=== PATIENT | male | born 1970 | race Caucasian/White ===

== ENCOUNTER 2016-12-29 20:28 | Emergency (ER) | payer BC, OTHER ==
--- NOTE | 2016-12-29 21:00 | EDM.PDOC ---
ED HPI NEURO - General Chief Complaint: Neuro Symptoms/Deficits Stated Complaint: PT DIZZY,HEADACHE Time Seen by Provider: 12/29/16 20:58 Source of Information: Reports: Patient, Family History Limitations: Reports: No limitations - History of Present Illness INITIAL COMMENTS - FREE TEXT/NARRATIVE: HISTORY AND PHYSICAL: [46-year-old male presenting with altered mental status.] History of Present Illness: [Yesterday patient was at [facility] was getting into the trunk of his car the trunk lid slammed to the top of his head and sustained a laceration was seen and trae were placed. Today at home he has had altered behaviors.] Review of Systems: As per history of present illness and below otherwise all systems reviewed and negative. Past medical history: As per history of present illness and as reviewed below otherwise noncontributory. Surgical history: As per history of present illness and as reviewed below otherwise noncontributory. Social history: No reported history of drug or alcohol abuse. Family history: As per history of present illness and as reviewed below otherwise noncontributory. Physical exam: Alert and oriented HEENT: Atraumatic, normocehpalic, pupils reactive, negative for conjunctival pallor or scleral icterus, mucous membranes moist, throat clear, neck supple, nontender, trachea midline. Lungs: Clear to auscultation, breath sounds equal bilaterally, chest non tender. Heart: S1S2, regular, negative for clicks, rubs, or JVD. Abdomen: Soft, nondistended, nontender. Negative for masses or hepatossplenmegaly. Negative for costovertebral tenderness. Pelvis: Stable nontender. Genitourinary: Deferred. Rectal: Deferred Extremities: Atraumatic, negative for cords or calf pain. Neurovascular unremarkable. Neuro: Awake, alert, oriented. Cranial nerves II through XII unremarkable. Cerebellum unremarkable. Motor and sensory unremarkable throughout. Exam nonfocal. Diagnostics: [Head CT] Therapeutics: [] Impression: [Concussion] Plan: [] Refer to Dr. Greer Until Tuesday01/11/2016 Definitive disposition and diagnosis as appropriate pending reevaluation and review of above. Timing/Duration: Reports: Hour(s): - Related Data Allergies/ADRs: Allergies Allergy/AdvReac Type Severity Reaction Status Date / Time No Known Allergies Allergy Verified 12/29/16 20:34 Home Meds: Home Meds Flecainide [Tambocor] 50 mg PO BID 12/29/16 [History] buPROPion [Wellbutrin XL] 150 mg PO DAILY 12/29/16 [History] Past Medical History Cardiovascular History: Reports: Arrhythmia Respiratory History: Reports: Sleep apnea Gastrointestinal History: Reports: None Genitourinary History: Reports: None Musculoskeletal History: Reports: Back pain, chronic Neurological History: Reports: None Psychiatric History: Reports: Depression Endocrine/Metabolic History: Reports: None - Infectious Disease History Infectious Disease History: Reports: Chicken pox - Past Surgical History HEENT Surgical History: Reports: Myringotomy w tube(s) Male Surgical History: Reports: None Other Musculoskeletal Surgeries/Procedures:: left knee surgery Social & Family History - Family History Family Medical History: Noncontributory - Tobacco Use Smoking Status *Q: Never Smoker - Recreational Drug Use Recreational Drug Use: No ED ROS GENERAL - Review of Systems Review Of Systems: ROS reveals no pertinent complaints other than HPI. ED EXAM, NEURO - Physical Exam Exam: See Below (see dictation) Course - Vital Signs Last Recorded V/S: Last Vital Signs Temp 36.4 C 12/29/16 20:35 Pulse 66 12/29/16 20:35 Resp 16 12/29/16 20:35 BP 128/80 12/29/16 20:35 Pulse Ox 94 L 12/29/16 20:35 - Orders/Labs/Meds Orders: Active Orders 24 hr Category Date Time Status Head wo Cont [CT] Stat Exams 12/29/16 20:46 Taken Departure - Departure Time of Disposition: 21:38 Disposition: Home, Self-Care 01 Condition: good Clinical Impression: Concussion Qualifiers: Encounter type: initial encounter Loss of consciousness presence/duration: without LOC Qualified Code(s): S06.0X0A - Concussion without loss of consciousness, initial encounter Instructions: Post-Concussion Syndrome, [id number] Referrals: PCP,None [Primary Care Provider] - Eunice Greer MD [Physician] - Forms: ED Department Discharge Additional Instructions: The following information is given to patients seen in the emergency department who are being discharged to home. This information is to outline your options for follow-up care. We provide all patients seen in our emergency department with a follow-up referral. The need for follow-up, as well as the timing and circumstances, are variable depending upon the specifics of your emergency department visit. If you don't have a primary care physician on staff, we will provide you with a referral. We always advise you to contact your personal physician following an emergency department visit to inform them of the circumstance of the visit and for follow-up with them and/or the need for any referrals to a consulting specialist. The emergency department will also refer you to a specialist when appropriate. This referral assures that you have the opportunity for followup care with a specialist. All of these measure are taken in an effort to provide you with optimal care, which includes your followup. Under all circumstances we always encourage you to contact your private physician who remains a resource for coordinating your care. When calling for followup care, please make the office aware that this follow-up is from your recent emergency room visit. If for any reason you are refused follow-up, please contact the [facility] emergency department at and asked to speak to the emergency department charge nurse. Tylenol for pain Referral has been made to Dr. Eunice Greer, neurologist [facility] - Neurology Professional Building [address] [place] [address], [address] [place] [address] Please call for an appointment Written note to be off work until
[2016-12-30 00:07] VITALS: BP 131/66
--- NOTE | 2016-12-30 18:34 | CT ---
EXAM DATE: 12/29/16 PATIENT'S AGE: 46 Patient: HERSON TERRY Facility: [place], [place] Site . Site : 1970 Study: CT Head [id number]/15/2017 9:12:35 PM Ordering Physician: Doctor Do Final Report: INDICATION: Headache following head trauma 1 day prior TECHNIQUE: CT head without contrast. COMPARISON: None FINDINGS: CSF spaces: Within normal limits for age. Brain parenchyma: The pearson-white differentiation is normal. No sign of mass, hemorrhage, or midline shift. Skull base and calvarium: The visualized paranasal sinuses and mastoid air cells demonstrate no acute or significant findings. The visualized orbits are grossly unremarkable. No skull fractures. IMPRESSION: Unremarkable noncontrast head CT. No evidence of acute intracranial trauma. Dictated by Santhosh Bennett MD @ 12/29/2016 9:20:15 PM Dictated by: Santhosh Bennett MD @ 12/29/2016 21:20:19 (Electronic Signature) Report Signed by Proxy and Original Signed Document filed in the Medical Record. [facility]
== END 2016-12-29 21:56 | disposition home or self-care (01) ==
LOC: MW.ED 20:28
DX: S06.0X0A Concussion without loss of consciousness, initial encounter (principal); Z79.899 Other long term (current) drug therapy; Z98.890 Other specified postprocedural states; X58.XXXA Exposure to other specified factors, initial encounter
CPT/HCPCS: 70450; 70450-26; 99283; 99284-25

== ENCOUNTER 2017-12-10 21:15 | Emergency (ER) | payer BC ==
--- NOTE | 2017-12-10 21:19 | EDM.PDOC ---
<Usha Jacobs - Last Filed: 12/10/17 21:31> ED HPI GENERAL MEDICAL PROBLEM - General Stated Complaint: COUGH, CHILLS, FEVER Time Seen by Provider: 12/10/17 21:19 Source of Information: Reports: Family History Limitations: Reports: No Limitations - History of Present Illness INITIAL COMMENTS - FREE TEXT/NARRATIVE: Patient has a son who had influenza last week. Patient did not have prophylactic Tamiflu He is experiencing coughing and fever. With this exposure will go ahead and treat him for influenza Prescription will be electronically sent to [place] [facility] follow-up with his provider next week Onset: Gradual Duration: Day(s): (2) Location: Reports: Chest Quality: Reports: Ache Severity: Mild Improves with: Reports: None Worsens with: Reports: None throat Pain Score (Numeric/FACES): 5 - Related Data Allergies Allergy/AdvReac Type Severity Reaction Status Date / Time No Known Allergies Allergy Verified 12/10/17 21:26 Home Meds: Home Meds Flecainide [Tambocor] 50 mg PO BID 12/29/16 [History] buPROPion [Wellbutrin XL] 150 mg PO DAILY 12/29/16 [History] Oseltamivir [Tamiflu] 75 mg PO BID #10 cap 12/10/17 [Rx] ED ROS GENERAL - Review of Systems Review Of Systems: ROS reveals no pertinent complaints other than HPI. ED EXAM, GENERAL - Physical Exam Exam: See Below (See dictation) Course - Vital Signs Last Recorded V/S: Last Vital Signs Temp 99.7 F 12/10/17 21:40 Pulse 112 H 12/10/17 21:40 Resp 18 12/10/17 21:40 BP 115/65 12/10/17 21:40 Pulse Ox 94 L 12/10/17 21:40 Departure - Departure Time of Disposition: 21:33 Disposition: Home, Self-Care 01 Condition: Good Clinical Impression: Influenza - Discharge Information Prescriptions: Oseltamivir [Tamiflu] 75 mg PO BID #10 cap Instructions: Influenza, Adult, [id number] Referrals: Santhosh Anders MD [Primary Care Provider] - Forms: ED Department Discharge Additional Instructions: The following information is given to patients seen in the emergency department who are being discharged to home. This information is to outline your options for follow-up care. We provide all patients seen in our emergency department with a follow-up referral. The need for follow-up, as well as the timing and circumstances, are variable depending upon the specifics of your emergency department visit. If you don't have a primary care physician on staff, we will provide you with a referral. We always advise you to contact your personal physician following an emergency department visit to inform them of the circumstance of the visit and for follow-up with them and/or the need for any referrals to a consulting specialist. The emergency department will also refer you to a specialist when appropriate. This referral assures that you have the opportunity for followup care with a specialist. All of these measure are taken in an effort to provide you with optimal care, which includes your followup. Under all circumstances we always encourage you to contact your private physician who remains a resource for coordinating your care. When calling for followup care, please make the office aware that this follow-up is from your recent emergency room visit. If for any reason you are refused follow-up, please contact the [facility] emergency department at and asked to speak to the emergency department charge nurse. Follow-up with your provider next week He retreated for influenza with Tamiflu 1 capsule twice daily 5 days Stay home until your symptoms resolve <Jameel Harry - Last Filed: 12/14/17 10:16> ED HPI GENERAL MEDICAL PROBLEM - General Source of Information: Reports: Patient - History of Present Illness INITIAL COMMENTS - FREE TEXT/NARRATIVE: HISTORY AND PHYSICAL: Patient was seen and examined by Usha jacobs [] Definitive disposition and diagnosis as appropriate pending reevaluation and review of above. Past Medical History Cardiovascular History: Reports: Arrhythmia Respiratory History: Reports: Sleep Apnea Gastrointestinal History: Reports: None Genitourinary History: Reports: None Musculoskeletal History: Reports: Back Pain, Chronic Neurological History: Reports: None Psychiatric History: Reports: Depression Endocrine/Metabolic History: Reports: None - Infectious Disease History Infectious Disease History: Reports: Chicken Pox - Past Surgical History HEENT Surgical History: Reports: Myringotomy w Tube(s) Social & Family History - Family History Family Medical History: Noncontributory - Tobacco Use Smoking Status *Q: Never Smoker - Recreational Drug Use Recreational Drug Use: No Course - Vital Signs Last Recorded V/S: Last Vital Signs Temp 99.7 F 12/10/17 21:40 Pulse 112 H 12/10/17 21:40 Resp 18 12/10/17 21:40 BP 115/65 12/10/17 21:40 Pulse Ox 94 L 12/10/17 21:40
[2017-12-10 21:41] VITALS: BP 115/65
== END 2017-12-10 21:42 | disposition home or self-care (01) ==
LOC: MW.ED 21:15
DX: J11.1 Influenza due to unidentified influenza virus with other respiratory manifestations (principal); F32.9 Major depressive disorder, single episode, unspecified; Z79.899 Other long term (current) drug therapy
CPT/HCPCS: 99282

== ENCOUNTER 2017-12-11 11:55 | Emergency (ER) | payer BC | END 2017-12-11 12:30 | disposition left against medical advice (07) | LOC: MW.ED 11:55 | DX: Z53.21 Procedure and treatment not carried out due to patient leaving prior to being seen by health care provider (principal) ==

== ENCOUNTER 2021-06-04 09:14 | Day surgery (SDC) | payer BC ==
[~2021-06-04 09:14] MED LIST: Lactated Ringers 1,000 ML IV SCH; Sodium Chloride 0.9% 10 ML SDV IV PRN; Sodium Chloride 0.9% 10 ML Syringe FLUSH PRN; Sodium Chloride 0.9% 2.5 ML Syringe FLUSH PRN
--- NOTE | 2021-06-04 09:48 | PCM.PREANE ---
Preanesthetic Assessment - Procedure Proposed Procedure: Colonoscopy - Anesthesia/Transfusion/Family Hx Anesthesia History: Prior Anesthesia Without Reaction Family History of Anesthesia Reaction: No Transfusion History: No Prior Transfusion(s) Intubation History: Unknown - Review of Systems General: No Symptoms Pulmonary: No Symptoms Cardiovascular: No Symptoms (Arryrythmia controlled on Flecainide) Gastrointestinal: No Symptoms Neurological: No Symptoms Other: Reports: None - Physical Assessment NPO Status Date: 06/02/21 NPO Status Time: 19:30 Vital Signs: Last Vital Signs Temp 96.4 F L 06/04/21 09:24 Pulse 67 06/04/21 09:24 Resp 15 06/04/21 09:24 BP 127/79 06/04/21 09:24 Pulse Ox 96 06/04/21 09:24 Height: 5 ft 10 in Weight: 111.584 kg ASA Class: 3 Mental Status: Alert & Oriented x3 Airway Class: Mallampati = 3 Dentition: Reports: Normal Dentition Thyro-Mental Finger Breadths: 3 Mouth Opening Finger Breadths: 3 ROM/Head Extension: Full Lungs: Clear to Auscultation, Normal Respiratory Effort Cardiovascular: Regular Rate, Regular Rhythm - Allergies Allergies/Adverse Reactions: Allergies Allergy/AdvReac Type Severity Reaction Status Date / Time No Known Allergies Allergy Verified 05/29/21 09:00 - Acknowledgements Anesthesia Type Planned: General Anesthesia Pt an Appropriate Candidate for the Planned Anesthesia: Yes Alternatives and Risks of Anesthesia Discussed w Pt/Guardian: Yes Pt/Guardian Understands and Agrees with Anesthesia Plan: Yes PreAnesthesia Questionnaire HEENT History: Reports: None Cardiovascular History: Reports: Arrhythmia Respiratory History: Reports: Sleep Apnea Other Respiratory History: uses CPAP Gastrointestinal History: Reports: Other (See Below) Genitourinary History: Reports: None Musculoskeletal History: Reports: Back Pain, Chronic Neurological History: Reports: None Psychiatric History: Reports: Depression Endocrine/Metabolic History: Reports: Obesity/BMI 30+ Hematologic History: Reports: None Immunologic History: Reports: None Oncologic (Cancer) History: Reports: None Dermatologic History: Reports: Other (See Below) Other Dermatologic History: states tested positive for MRSA in the past - Infectious Disease History Infectious Disease History: Reports: Chicken Pox Other Infectious Disease History: states had COVID in May 2020, also states he tested positive for MRSA in the past - Past Surgical History Head Surgeries/Procedures: Reports: None HEENT Surgical History: Reports: Myringotomy w Tube(s), Tonsillectomy Cardiovascular Surgical History: Reports: None Respiratory Surgical History: Reports: None GI Surgical History: Reports: Cholecystectomy Male Surgical History: Reports: None Endocrine Surgical History: Reports: None Neurological Surgical History: Reports: None Musculoskeletal Surgical History: Reports: Arthroscopic Knee Other Musculoskeletal Surgeries/Procedures:: left knee surgery Oncologic Surgical History: Reports: None Dermatological Surgical History: Reports: None - SUBSTANCE USE Tobacco Use Within Last Twelve Months: No - HOME MEDS Home Medications: Home Meds Flecainide [Tambocor] 50 mg PO BID 12/29/16 [History] buPROPion [Wellbutrin XL] 150 mg PO DAILY 12/29/16 [History] Ibuprofen 1 - 2 tab PO ASDIRECTED PRN 07/27/18 [History] dilTIAZem HCL [Diltiazem 24Hr ER] 120 mg PO DAILY 07/27/18 [History] Diclofenac Sodium [Diclofenac Sodium ER] 100 mg PO DAILY 07/28/18 [History] Pantoprazole Sodium [Protonix] 40 mg PO DAILY 05/29/21 [History] - CURRENT (IN HOUSE) MEDS Current Meds: Current Medications Lactated Ringer's (Ringers, Lactated) 1,000 mls @ 125 mls/hr IV ASDIRECTED [facility] Last Admin: 06/04/21 09:41 Dose: 125 mls/hr Documented by: Sodium Chloride (Sodium Chloride 0.9% 10 Ml Syringe) 10 ml FLUSH ASDIRECTED PRN PRN Reason: Keep Vein Open Sodium Chloride (Sodium Chloride 0.9% 2.5 Ml Syringe) 2.5 ml FLUSH ASDIRECTED PRN PRN Reason: Keep Vein Open Sodium Chloride (Sodium Chloride 0.9% 10 Ml Syringe) 10 ml FLUSH ASDIRECTED PRN PRN Reason: Keep Vein Open Sodium Chloride (Sodium Chloride 0.9% 2.5 Ml Syringe) 2.5 ml FLUSH ASDIRECTED PRN PRN Reason: Keep Vein Open Sodium Chloride (Sodium Chloride 0.9% 10 Ml Sdv) 10 ml IV ASDIRECTED PRN PRN Reason: IV Use
[2021-06-04] MEDS ORDERED: Propofol 200 MG/20 ML SDV ONE ×3 (10:54→12:22)
[2021-06-04] MEDS ORDERED: fentaNYL 100 MCG/2 ML SDV ONE (10:55)
--- NOTE | 2021-06-04 12:56 | PCM.OPNOTE ---
- General Post-Op/Procedure Note Date of Surgery/Procedure: 06/04/21 Operative Procedure(s): Diagnostic colonoscopy Findings: ascending and transverse colon polyp, random biopsies throughout colon Pre Op Diagnosis: Change in bowel habits Post-Op Diagnosis: ascending and transverse colon polyp Anesthesia Technique: KATIE Primary Surgeon: Aimee Coronado Condition: Good
[2021-06-04 12:57] VITALS: PULSE 83
--- NOTE | 2021-06-04 13:02 | PCM.POSTAN ---
POST ANESTHESIA ASSESSMENT - MENTAL STATUS Mental Status: Alert, Oriented - VITAL SIGNS Vital Signs: Last Vital Signs Temp 96.4 F L 06/04/21 09:24 Pulse 83 06/04/21 12:55 Resp 19 06/04/21 12:55 BP 106/70 06/04/21 12:55 Pulse Ox 93 L 06/04/21 12:55 - RESPIRATORY Respiratory Status: Respiratory Rate WNL, Airway Patent, O2 Saturation Stable - CARDIOVASCULAR CV Status: Pulse Rate WNL, Blood Pressure Stable - GASTROINTESTINAL GI Status: No Symptoms - PAIN Pain Score: 0 - POST OP HYDRATION Hydration Status: Adequate & Stable
[2021-06-04 13:04] VITALS: BP 118/79
--- NOTE | 2021-06-04 13:04 | PCM48HPAN ---
Post Anesthesia Note - EVALUATION WITHIN 48HRS OF ANESTHETIC Vital Signs in Normal Range: Yes Patient Participated in Evaluation: Yes Respiratory Function Stable: Yes Airway Patent: Yes Cardiovascular Function Stable: Yes Hydration Status Stable: Yes Pain Control Satisfactory: Yes Nausea and Vomiting Control Satisfactory: Yes Mental Status Recovered: Yes Vital Signs: Last Vital Signs Temp 96.4 F L 06/04/21 09:24 Pulse 83 06/04/21 12:55 Resp 19 06/04/21 12:55 BP 106/70 06/04/21 12:55 Pulse Ox 93 L 06/04/21 12:55 - COMMENTS/OBSERVATIONS Free Text/Narrative:: Pt doing well post-op. VSS. No apparent anesthetic complications. Dr. Joey Cortés
--- NOTE | 2021-06-05 18:00 | OR ---
SURGEON: AIMEE CORONADO MD DATE OF PROCEDURE: 06/04/2021 PREOPERATIVE DIAGNOSIS: Change in bowel habits. POSTOPERATIVE DIAGNOSES: 1. Ascending colon polyp. 2. Transverse colon polyp. PROCEDURE PERFORMED: Diagnostic colonoscopy. PRIMARY SURGEON: Aimee Coronado MD ANESTHESIA: MAC. INSTRUMENT USED: Olympus colonoscope. EXTENT OF EXAM: To the cecum. PREPARATION: Good. LIMITATIONS: None. INDICATIONS FOR EXAMINATION: The patient is a 50-year-old male who presented to clinic with complaints of a change in his bowel habits. He has been having chronic diarrhea. The decision was made to proceed with a diagnostic colonoscopy with biopsies. I explained the procedure, expected perioperative course, and the risks. He verbalized understanding and wishes to proceed. PROCEDURE IN DETAIL: The patient was brought in to the endoscopy suite and placed in a left lateral decubitus position. A time-out was completed verifying the patient's name, age, date of , allergies, and procedure to be performed. Monitored anesthesia care was induced and continuous oxygen was provided via nasal cannula throughout the procedure. After adequate sedation was achieved, a digital rectal exam was performed. This exam was within normal limits. A well-lubricated colonoscope was inserted in the rectum and advanced under direct visualization to the level of the cecum. The cecum was identified by both visual and anatomic landmarks. A photograph was taken of the cecal cap; however, I was unable to retroflex the scope within the cecum due to looping of the scope more proximally. The scope was then fully withdrawn while examining the color, texture, anatomy, and integrity of the mucosa from the cecum to the anal canal. The patient's mucosa showed no evidence of inflammation or ulceration. A random biopsies were taken of the patient's cecum, ascending colon, transverse colon, descending colon, sigmoid colon, and rectum. The patient was noted to have an ascending and transverse colon polyp. These were removed in piecemeal fashion using a cold biopsy forceps. The scope was then brought into the rectum and retroflexed to allow visualization of the anal canal opening. This appeared normal and a photograph was taken. The scope was then straightened out and fully withdrawn. The cecum to anus time was 19 minutes. The patient tolerated the procedure well and was transferred to the PACU in stable condition. ENDOSCOPIC DIAGNOSES: 1. Ascending colon polyp. 2. Transverse colon polyp. RECOMMENDATION: Follow up in clinic in two weeks. NAMRATA / VIVIENNE /[id number]
== END 2021-06-04 13:15 | disposition home or self-care (01) ==
LOC: MW.SDS 09:14
PROVIDERS: ATTEND Surgery
DX: D12.3 Benign neoplasm of transverse colon (principal); D12.2 Benign neoplasm of ascending colon; K52.9 Noninfective gastroenteritis and colitis, unspecified; E66.9 Obesity, unspecified; Z79.899 Other long term (current) drug therapy; Z98.890 Other specified postprocedural states; Z87.891 Personal history of nicotine dependence; Z68.35 Body mass index [BMI] 35.0-35.9, adult
CPT/HCPCS: 45380; 88305; J2704; J3010; J7120

== ENCOUNTER 2021-08-22 22:59 | Emergency (ER) | payer BC ==
--- NOTE | 2021-08-22 23:01 | EDM.PDOC ---
ED HPI GENERAL MEDICAL PROBLEM - General Stated Complaint: HEART PROBLEM Time Seen by Provider: 08/22/21 23:00 Source of Information: Reports: Patient History Limitations: Reports: No Limitations - History of Present Illness INITIAL COMMENTS - FREE TEXT/NARRATIVE: 50-year-old male past medical history GERD, hypertension presents for rapid heart rate. Patient has a known history of atrial fibrillation and is on flecainide and diltiazem. He notes he is not always good about taking his flecainide. He noted this evening that his heart was pounding. He denies any pain associated with that. He just makes him feel weak and tired. He denies any shortness of breath. Denies any lower extremity swelling or edema. Left Chest Pain Score (Numeric/FACES): 1 - Related Data Allergies Allergy/AdvReac Type Severity Reaction Status Date / Time No Known Allergies Allergy Verified 08/22/21 23:02 Home Meds: Home Meds Flecainide [Tambocor] 50 mg PO BID 12/29/16 [History] buPROPion [Wellbutrin XL] 150 mg PO DAILY 12/29/16 [History] Ibuprofen 1 - 2 tab PO ASDIRECTED PRN 07/27/18 [History] dilTIAZem HCL [Diltiazem 24Hr ER] 120 mg PO DAILY 07/27/18 [History] Pantoprazole Sodium [Protonix] 40 mg PO DAILY 05/29/21 [History] Past Medical History HEENT History: Reports: None Cardiovascular History: Reports: Arrhythmia Respiratory History: Reports: Sleep Apnea Other Respiratory History: uses CPAP Gastrointestinal History: Reports: Other (See Below) Genitourinary History: Reports: None Musculoskeletal History: Reports: Back Pain, Chronic Neurological History: Reports: None Psychiatric History: Reports: Depression Endocrine/Metabolic History: Reports: Obesity/BMI 30+ Hematologic History: Reports: None Immunologic History: Reports: None Oncologic (Cancer) History: Reports: None Dermatologic History: Reports: Other (See Below) Other Dermatologic History: states tested positive for MRSA in the past - Infectious Disease History Infectious Disease History: Reports: Chicken Pox Other Infectious Disease History: states had COVID in May 2020, also states he tested positive for MRSA in the past - Past Surgical History Head Surgeries/Procedures: Reports: None HEENT Surgical History: Reports: Myringotomy w Tube(s), Tonsillectomy Cardiovascular Surgical History: Reports: None Respiratory Surgical History: Reports: None GI Surgical History: Reports: Cholecystectomy Male Surgical History: Reports: None Endocrine Surgical History: Reports: None Neurological Surgical History: Reports: None Musculoskeletal Surgical History: Reports: Arthroscopic Knee Other Musculoskeletal Surgeries/Procedures:: left knee surgery Oncologic Surgical History: Reports: None Dermatological Surgical History: Reports: None Social & Family History - Family History Family Medical History: No Pertinent Family History - Caffeine Use Caffeine Use: Reports: None ED ROS GENERAL - Review of Systems Review Of Systems: Comprehensive ROS is negative, except as noted in HPI. ED EXAM, GENERAL - Physical Exam Exam: See Below Exam Limited By: No Limitations General Appearance: Alert, WD/WN, No Apparent Distress Ears: Hearing Grossly Normal Throat/Mouth: Normal Voice, No Airway Compromise Head: Atraumatic, Normocephalic Respiratory/Chest: No Respiratory Distress, Lungs Clear, Normal Breath Sounds, No Accessory Muscle Use Cardiovascular: Normal Peripheral Pulses, No Edema, Tachycardia, Irregularly Irregular GI/Abdominal: Soft, Non-Tender Extremities: Normal Inspection Neurological: Alert, Normal Cognition, Normal Gait Psychiatric: Normal Affect, Normal Mood Skin Exam: Warm, Dry, Intact, Normal Color #1 Interpretation EKG Date: 08/22/21 Time: 23:07 Rhythm: A-Fib Rate (Beats/Min): 134 [place]: Normal QRS: Normal ST-T: Normal QT: Normal EKG Interpretation Comments: Afib RVR, no ischemic changes Course - Vital Signs Last Recorded V/S: Last Vital Signs Temp 97.1 F 08/22/21 23:02 Pulse 96 08/22/21 23:29 Resp 18 08/22/21 23:29 BP 123/78 08/22/21 23:29 Pulse Ox 95 08/22/21 23:29 - Orders/Labs/Meds Orders: Active Orders 24 hr Category Date Time Status EKG Documentation Completion [RC] STAT Care 08/22/21 23:09 Active COMPREHENSIVE METABOLIC PN,CMP [CHEM] Stat Lab 08/22/21 23:20 Results MAGNESIUM [CHEM] Stat Lab 08/22/21 23:20 Results T4 FREE [CHEM] Stat Lab 08/22/21 23:20 Results TROPONIN I [CHEM] Stat Lab 08/22/21 23:20 Results TSH REFLEX TO FREE T4 [CHEM] Stat Lab 08/22/21 23:20 Results Saline Lock Insert [OM.PC] Stat Oth 08/22/21 23:10 Ordered Labs: Laboratory Tests 08/22/21 08/22/21 08/22/21 Range/Units 23:20 23:40 23:40 WBC 6.44 (4.0-11.0) K/uL RBC 4.97 (4.50-5.90) M/uL Hgb 15.5 (13.0-17.0) g/dL Hct 44.8 (38.0-50.0) % MCV 90.1 (80.0-98.0) fL MCH 31.2 (27.0-32.0) pg MCHC 34.6 (31.0-37.0) g/dL RDW Std Deviation 44.5 (28.0-62.0) fl RDW Coeff of Wu 14 (11.0-15.0) % Plt Count 206 (150-400) K/uL MPV 9.80 (7.40-12.00) fL Neut % (Auto) 52.9 (48.0-80.0) % Lymph % (Auto) 34.2 (16.0-40.0) % [place] % (Auto) 10.9 (0.0-15.0) % Eos % (Auto) 1.7 (0.0-7.0) % Baso % (Auto) 0.3 (0.0-1.5) % Neut # (Auto) 3.4 (1.4-5.7) K/uL Lymph # (Auto) 2.2 (0.6-2.4) K/uL [place] # (Auto) 0.7 (0.0-0.8) K/uL Eos # (Auto) 0.1 (0.0-0.7) K/uL Baso # (Auto) 0.0 (0.0-0.1) K/uL Nucleated RBC % 0.0 /100WBC Nucleated RBCs # 0 K/uL Sodium 145 (136-148) mmol/L Potassium 3.8 (3.5-5.1) mmol/L Chloride 106 (98-107) mmol/L Carbon Dioxide 29.3 (21.0-32.0) mmol/L BUN 19 H (7.0-18.0) mg/dL Creatinine 1.2 (0.8-1.3) mg/dL Est Cr Clr Drug Dosing 76.89 mL/min Estimated GFR (MDRD) > 60.0 ml/min Glucose 107 H (74-106) mg/dL Calcium 8.7 (8.5-10.1) mg/dL Magnesium 2.1 (1.8-2.4) mg/dL Total Bilirubin 0.4 (0.2-1.0) mg/dL AST 18 (15-37) IU/L ALT 43 (14-63) IU/L Alkaline Phosphatase 68 (46-116) U/L Troponin I < 0.050 (0.000-0.056) ng/mL B-Natriuretic Peptide 26 (<100) PG/ML Total Protein 7.4 (6.4-8.2) g/dL Albumin 3.9 (3.4-5.0) g/dL Globulin 3.5 (2.6-4.0) g/dL Albumin/Globulin Ratio 1.1 (0.9-1.6) TSH, Ultra Sensitive 6.02 H (0.36-3.74) uIU/mL Meds: Medications Discontinued Medications Generic Name Dose Route Start Last Admin Trade Name Freq PRN Reason Stop Dose Admin Diltiazem HCl 25 mg 08/22/21 23:10 08/22/21 23:20 Diltiazem 25 Mg/5 Ml Sdv IVPUSH 08/22/21 23:11 25 mg ONETIME ONE Administration Diltiazem HCl 60 mg 08/22/21 23:27 08/22/21 23:42 Diltiazem Ir 60 Mg Tab PO 08/22/21 23:28 60 mg ONETIME ONE Administration Sodium Chloride 1,000 mls @ 999 mls/hr 08/22/21 23:09 08/22/21 23:19 Normal Saline IV 08/23/21 00:09 999 mls/hr .Bolus ONE Administration - Re-Assessments/Exams Free Text/Narrative Re-Assessment/Exam: 08/22/21 23:12 We will get basic labs. Will give IV fluid bolus. Will give Cardizem for A. fib RVR. 08/22/21 23:28 Her rate improved from 140s to high 90s. Will give Cardizem 60 mg p.o. 08/23/21 00:33 Heart rate in the low 90s. Counseled patient on importance of taking medications. Will discharge with PMD follow-up. Labs unremarkable. Departure - Departure Time of Disposition: 00:33 Disposition: Home, Self-Care 01 Condition: Good Clinical Impression: Atrial fibrillation with RVR - Discharge Information Instructions: Atrial Fibrillation Referrals: PCP,None [Ordering Only Provider] - Additional Instructions: The following information is given to patients seen in the emergency department who are being discharged to home. This information is to outline your options for follow-up care. We provide all patients seen in our emergency department with a follow-up referral. The need for follow-up, as well as the timing and circumstances, are variable depending upon the specifics of your emergency department visit. If you don't have a primary care physician on staff, we will provide you with a referral. We always advise you to contact your personal physician following an e mergency department visit to inform them of the circumstance of the visit and for follow-up with them and/or the need for any referrals to a consulting specialist. The emergency department will also refer you to a specialist when appropriate. This referral assures that you have the opportunity for follow-up care with a specialist. All of these measure are taken in an effort to provide you with op timal care, which includes your follow-up. Under all circumstances we always encourage you to contact your private physician who remains a resource for coordinating your care. When calling for follow-up care, please make the office aware that this follow-up is from your recent emergency room visit. If for any reason you are refused follow-up, please contact the [facility] Emergency Department at and asked to speak to the emergency department charge nurse. Please follow up with your primary care physician. If you do not have a primary care physician, see below: [facility] [address] [place] [id number] [facility] [address] [place], [place] [id number] [facility] [address] [place] [address] Sepsis Event Note (ED) - Focused Exam Vital Signs: Vital Signs Temp Pulse Resp BP Pulse Ox 08/22/21 23:29 96 18 123/78 95 08/22/21 23:24 150 H 28 H 147/84 H 08/22/21 23:02 97.1 F 127 H 20 147/84 H 95 - My Orders Last 24 Hours: My Active Orders 08/22/21 23:09 EKG Documentation Completion [RC] STAT 08/22/21 23:10 Saline Lock Insert [OM.PC] Stat 08/22/21 23:20 COMPREHENSIVE METABOLIC PN,CMP [CHEM] Stat MAGNESIUM [CHEM] Stat T4 FREE [CHEM] Stat TROPONIN I [CHEM] Stat TSH REFLEX TO FREE T4 [CHEM] Stat - Assessment/Plan Last 24 Hours: My Active Orders 08/22/21 23:09 EKG Documentation Completion [RC] STAT 08/22/21 23:10 Saline Lock Insert [OM.PC] Stat 08/22/21 23:20 COMPREHENSIVE METABOLIC PN,CMP [CHEM] Stat MAGNESIUM [CHEM] Stat T4 FREE [CHEM] Stat TROPONIN I [CHEM] Stat TSH REFLEX TO FREE T4 [CHEM] Stat
[2021-08-22] MEDS ORDERED: Sodium Chloride 0.9% 1,000 ML IV ONE (23:09)
[2021-08-22] MEDS ORDERED: Diltiazem 25 MG/5 ML SDV IVPUSH ONE (23:10)
[2021-08-22] MEDS ORDERED: Diltiazem IR 60 MG Tab PO ONE (23:27)
[2021-08-23 00:13] LABS: BLOOD UREA NITROGEN,BUN 19 mg/dL (7.0-18.0); CARBON DIOXIDE,CO2 29.3 mmol/L (21.0-32.0); CHLORIDE,CL 106 mmol/L (98-107); GLUCOSE RANDOM 107 mg/dL (74-106); POTASSIUM,K 3.8 mmol/L (3.5-5.1); SODIUM,NA 145 mmol/L (136-148)
[2021-08-23 00:47] VITALS: BP 126/67; PULSE 92
== END 2021-08-23 00:40 | disposition home or self-care (01) ==
LOC: MW.ED 22:59
DX: I48.91 Unspecified atrial fibrillation (principal); I10 Essential (primary) hypertension; K21.9 Gastro-esophageal reflux disease without esophagitis; E66.9 Obesity, unspecified; Z68.35 Body mass index [BMI] 35.0-35.9, adult; Z79.899 Other long term (current) drug therapy
CPT/HCPCS: 36415; 80053; 83735; 83880; 84439; 84443; 84484; 85025; 93005; 96374; 99285; A9270; J3490; J7030

== ENCOUNTER 2023-07-13 18:58 | Emergency (ER) | payer BC ==
[2023-07-13 19:14] LABS: BASOPHILS PERCENT AUTO 0.3 % (0.0-1.5); EOSINOPHILS ABSOLUTE AUTO 0.2 K/uL (0.0-0.7); EOSINOPHILS PERCENT AUTO 2.6 % (0.0-7.0); HEMOGLOBIN 15.3 g/dL (13.0-17.0); LYMPHOCYTES ABSOLUTE AUTO 2.5 K/uL (0.6-2.4); LYMPHOCYTES PERCENT AUTO 38.6 % (16.0-40.0); MEAN CORPUSCULAR HEMOGLOBIN 31.6 pg (27.0-32.0); MEAN CORPUSCULAR HGB CONC 34.8 g/dL (31.0-37.0); MEAN CORPUSCULAR VOLUME 90.9 fL (80.0-98.0); MONOCYTES ABSOLUTE AUTO 0.8 K/uL (0.0-0.8); MONOCYTES PERCENT AUTO 12.7 % (0.0-15.0); NEUTROPHILS PERCENT AUTO 45.8 % (48.0-80.0); NRBC ABSOLUTE 0 K/uL; PLATELET COUNT,PLT 257 K/uL (150-400); RED BLOOD CELL COUNT 4.84 M/uL (4.50-5.90); WHITE BLOOD CELL COUNT,WBC 6.55 K/uL (4.0-11.0)
[2023-07-13 19:39] LABS: A/G RATIO 1.3 (0.9-1.6); ALBUMIN 4.2 g/dL (3.4-5.0); BILIRUBIN TOTAL 0.4 mg/dL (0.2-1.0); CALCIUM 8.2 mg/dL (8.5-10.1); CARBON DIOXIDE,CO2 27.1 mmol/L (21.0-32.0); CREATININE 1.2 mg/dL (0.8-1.3); EST CRCL DRUG DOSING (CG) 75.2 mL/min; POTASSIUM,K 3.6 mmol/L (3.5-5.1); PROTEIN TOTAL,TP 7.4 g/dL (6.4-8.2)
[2023-07-13 19:57] LABS: CORONAVIRUS COVID-19 NAA NEGATIVE (NEGATIVE); INFLUENZA A NAA NEGATIVE (NEGATIVE); INFLUENZA B NAA NEGATIVE (NEGATIVE)
[2023-07-13 22:36] VITALS: BP 145/79; PULSE 61
== END 2023-07-13 22:36 | disposition home or self-care (01) ==
LOC: MW.ED 18:58
DX: R07.89 Other chest pain (principal); G47.30 Sleep apnea, unspecified; E66.9 Obesity, unspecified; Z68.38 Body mass index [BMI] 38.0-38.9, adult; Z86.16 Personal history of COVID-19; Z20.822 Contact with and (suspected) exposure to COVID-19; Z79.899 Other long term (current) drug therapy
CPT/HCPCS: 0240U; 36415; 71045; 80053; 84484; 85025; 93005; 99285; 93010; 99282

== ENCOUNTER 2024-01-24 13:42 | Emergency (ER) | payer BC ==
[2024-01-24] MEDS: Sodium Chloride 0.9% 1,000 ML IV ONE (14:03)
[2024-01-24 14:12] LABS: BASOPHILS ABSOLUTE AUTO 0.04 K/uL (0.00-0.20); BASOPHILS PERCENT AUTO 0.5 % (0.0-1.0); EOSINOPHILS ABSOLUTE AUTO 0.11 K/uL (0.00-0.45); EOSINOPHILS PERCENT AUTO 1.4 % (0.0-6.0); HEMATOCRIT 46.4 % (42.0-52.0); HEMOGLOBIN 16.2 g/dL (14.0-18.0); IMMATURE GRAN ABSOLUTE AUTO 0.01 K/uL (0.00-0.05); IMMATURE GRAN PERCENT AUTO 0.1 % (0.0-0.4); LYMPHOCYTES PERCENT AUTO 32.9 % (24.0-44.0); MEAN CORPUSCULAR HEMOGLOBIN 31.5 pg (28.0-32.0); MEAN CORPUSCULAR HGB CONC 34.9 g/dL (32.0-36.0); MEAN CORPUSCULAR VOLUME 90.3 fL (83.0-99.0); MEAN PLATELET VOLUME 9.2 fL (9.4-12.4); MONOCYTES ABSOLUTE AUTO 0.78 K/uL (0.00-0.80); MONOCYTES PERCENT AUTO 9.9 % (0.0-8.0); NEUTROPHILS ABSOLUTE AUTO 4.36 K/uL (1.80-7.70); NEUTROPHILS PERCENT AUTO 55.2 % (41.0-71.0); PLATELET COUNT,PLT 278 K/uL (150-400); RED BLOOD CELL COUNT 5.14 M/uL (4.52-5.90)
[2024-01-24 14:39] LABS: A/G RATIO 1.2 (0.9-1.6); ALBUMIN 3.9 g/dL (3.4-5.0); BILIRUBIN TOTAL 0.3 mg/dL (0.2-1.0); CALCIUM 9.2 mg/dL (8.5-10.1); CARBON DIOXIDE,CO2 24.9 mmol/L (21.0-32.0); CREATININE 1.1 mg/dL (0.8-1.3); EST CRCL DRUG DOSING (CG) 78.56 mL/min; POTASSIUM,K 4.1 mmol/L (3.5-5.1); PROTEIN TOTAL,TP 7.2 g/dL (6.4-8.2)
[2024-01-24 15:13] LABS: TSH ULTRASENSITIVE 2.21 uIU/mL (0.36-3.74)
[2024-01-24] MEDS: Iopamidol 755 MG/ML 500 ML Multipack Bottle IVPUSH STA (15:38)
[2024-01-24 17:01] VITALS: BP 123/96; PULSE 64
[2024-01-24] MEDS: Apixaban 5 MG Tab PO STA (17:13)
== END 2024-01-24 17:15 | disposition home or self-care (01) ==
LOC: MW.ED 13:42
DX: I26.99 Other pulmonary embolism without acute cor pulmonale (principal); I48.91 Unspecified atrial fibrillation; I25.2 Old myocardial infarction; E66.9 Obesity, unspecified; Z79.899 Other long term (current) drug therapy; Z79.01 Long term (current) use of anticoagulants; Z68.37 Body mass index [BMI] 37.0-37.9, adult; Z75.8 Other problems related to medical facilities and other health care
CPT/HCPCS: 36415; 71046; 71275; 80053; 83690; 83880; 84443; 84484; 85025; 85379; 93005; 96360; 99285; A9270; J7030; Q9967; 93010; 99284